=== PATIENT | female | born 1995 | race Caucasian/White ===

== ENCOUNTER 2016-11-18 08:10 | Emergency (ER) | payer BC ==
[~2016-11-18] VITALS: Ht 167.6 cm; Wt 61.0 kg
[2016-11-18 08:21] VITALS: TEMP 36.5; Ht 167.6 cm; Wt 61.0 kg
[2016-11-18] MEDS ORDERED: BCPILLS PO (08:34)
--- NOTE | 2016-11-18 08:57 | EMERGENCY ROOM VISIT NOTE ---
History Report prepared by Katherin: Viv Mckeon Under the Supervision of: Dr. Simon Stone M.D. First contact with patient: 08:37 Chief Complaint: ILLNESS Stated Complaint: SEIZURE History of Present Illness The patient is a 20 year old female who presents to the Emergency Room with complaints of an episode of a seizure this morning. The patient states that she was drinking all day yesterday and went to bed. She states she was sleeping and does not remember waking up this morning. Per her friend, he states that he woke up this morning and she was making noises. He states when he checked on her , she seemed purple in color, He states he thought she was choking, but her jaw was clenched shut. He states that she was shaking, frothing at the mouth, and her eyes were rolling into the back of her head. He states that she was not responsive to voices when she stopped moving till the paramedics arrived. He states that even once she was responding, she thought she was in [place] where she lives and seemed very confused. She denies peeing herself or biting her tongue. The patient states that she had a seizure as a child in fifth grade and believed that it was due to low blood sugar, but was negative from any abnormalities in sugar levels. She states she was not put on any medications for the seizure. She states she is on control and has been sleeping normally. The patient complains of feeling a little shaky. She denies a history of diabetes and heart disease. She denies fever, chills, headache, abdominal pain and nausea. The patient notes that her Tetanus is up to date. Source of History: patient, friend Onset: this morning Position: other (global) Quality: other (global) Timing: other (episode) Associated Symptoms: No abdominal pain, No chills, No fevers, No headache, No nausea Note: The patient denies urinating herself and biting her tongue. She complains of feeling shaky. Review of Systems All systems have been listed, reviewed, and are negative other than those previously mentioned. Please see Additional Medical History Sheet. Past Medical & Surgical Medical Problems: (1) History of seizure Family History No pertinent family history. Social History Smoking Status: Never Smoker Alcohol Use: occasionally Marital Status: in relationship Housing Status: lives with family Occupation Status: student Current/Historical Medications Scheduled Control Pills ( Control Pills), 1 TAB PO DAILY Allergies Coded Allergies: Alcohol (Unverified Allergy, Unknown, HIVES, 11/18/16) FROM PEACH VODKA Cefixime (Unverified Allergy, Unknown, UNKNOWN, 11/18/16) Sodium Benzoate (Unverified Allergy, Unknown, UNKNOWN, 11/18/16) Physical Exam Vital Signs Date Time Temp Pulse Resp B/P Pulse Ox O2 Delivery O2 Flow Rate FiO2 11/18/16 11:18 88 16 116/98 97 11/18/16 10:21 84 16 141/106 99 Room Air 11/18/16 09:33 88 16 132/107 98 Room Air 11/18/16 09:23 99 Room Air 11/18/16 08:21 36.5 99 16 152/93 99 Room Air 11/18/16 08:19 111 Physical Exam GENERAL: Patient awake, alert, oriented x 3. Patient follows commands. Patient does not appear toxic. Patient is adequately hydrated and well- nourished. SKIN: No erythema, pallor, cyanosis or rash HEENT: Normal head, pupils equal, reactive to light and accommodation. Oral cavity and posterior pharynx appear normal. Tongue shows no signs of abrasion or laceration. Neck: Without adenopathy, no neck vein distention. LUNGS: Clear to auscultation. No wheezes, no rales, no rhonchi. HEART: No murmurs. No gallops. No rubs ABDOMEN: No masses, no rebound, no hepatomegaly or splenomegaly. EXTREMITIES: No signs of trauma. No pedal or pretibial edema. No calf or thigh tenderness. Small 2 cm scratch on right knee. NEUROLOGIC: Cranial nerves II-XII within normal limits. No gross motor sensory function deficits. Medical Decision & Procedures Laboratory Results 11/18/16 08:55 Red Blood Count 5.18, Mean Corpuscular Volume 85.7, Mean Corpuscular Hemoglobin 30.5, Mean Corpuscular Hemoglobin Concent 35.6, Mean Platelet Volume 9.9, Neutrophils (%) (Auto) 75.7, Lymphocytes (%) (Auto) 17.5, Monocytes (%) (Auto) 5.4, Eosinophils (%) (Auto) 0.8, Basophils (%) (Auto) 0.5, Neutrophils # (Auto) 6.59, Lymphocytes # (Auto) 1.52, Monocytes # (Auto) 0.47, Eosinophils # (Auto) 0.07, Basophils # (Auto) 0.04 11/18/16 08:55 Test 11/18/16 08:39 11/18/16 08:55 11/18/16 09:30 Bedside Glucose 91 mg/dl (70-90) White Blood Count 8.70 K/uL (4.8-10.8) Red Blood Count 5.18 M/uL (4.2-5.4) Hemoglobin 15.8 g/dL (12.0-16.0) Hematocrit 44.4 % (37-47) Mean Corpuscular Volume 85.7 fL (80-100) Mean Corpuscular Hemoglobin 30.5 pg (25-34) Mean Corpuscular Hemoglobin Concent 35.6 g/dl (32-36) Platelet Count 218 K/uL (130-400) Mean Platelet Volume 9.9 fL (7.4-10.4) Neutrophils (%) (Auto) 75.7 % Lymphocytes (%) (Auto) 17.5 % Monocytes (%) (Auto) 5.4 % Eosinophils (%) (Auto) 0.8 % Basophils (%) (Auto) 0.5 % Neutrophils # (Auto) 6.59 K/uL (1.4-6.5) Lymphocytes # (Auto) 1.52 K/uL (1.2-3.4) Monocytes # (Auto) 0.47 K/uL (0.11-0.59) Eosinophils # (Auto) 0.07 K/uL (0-0.5) Basophils # (Auto) 0.04 K/uL (0-0.2) RDW Standard Deviation 38.3 fL (36.4-46.3) RDW Coefficient of Variation 12.1 % (11.5-14.5) Immature Granulocyte % (Auto) 0.1 % Immature Granulocyte # (Auto) 0.01 K/uL (0.00-0.02) Anion Gap 12.0 mmol/L (3-11) Est Creatinine Clear Calc Drug Dose 87.6 ml/min Estimated GFR () 99.2 Estimated GFR (Non- 85.6 BUN/Creatinine Ratio 14.7 (10-20) Calcium Level 9.6 mg/dl (8.5-10.1) Total Bilirubin 0.9 mg/dl (0.2-1) Aspartate Amino Transf (AST/SGOT) 23 U/L (15-37) Alanine Aminotransferase (ALT/SGPT) 25 U/L (12-78) Alkaline Phosphatase 66 U/L (45-117) Total Protein 8.2 gm/dl (6.4-8.2) Albumin 4.3 gm/dl (3.4-5.0) Globulin 3.9 gm/dl (2.5-4.0) Albumin/Globulin Ratio 1.1 (0.9-2) Urine Color YELLOW Urine Appearance CLEAR (CLEAR) Urine pH 6.0 (4.5-7.5) Urine Specific [place] 1.026 (1.000-1.030) Urine Protein NEG (NEG) Urine Glucose (UA) NEG (NEG) Urine Ketones NEG (NEG) Urine Occult Blood NEG (NEG) Urine Nitrite NEG (NEG) Urine Bilirubin NEG (NEG) Urine Urobilinogen NEG (NEG) Urine Leukocyte Esterase NEG (NEG) Urine Test NEG (NEG) Laboratory results as stated above per my review. ED Course 0840: Past medical records reviewed. The patient was evaluated in room B7. A complete history and physical examination was performed. 1058: I reevaluated the patient and she is resting comfortably. She has had no seizure activity while here. 1120: Upon reevaluation, the patient appeared to have improvement of her symptoms. I discussed today's findings with the patient. She verbalized agreement of the treatment plan. The patient was discharged home. 1131: I discussed the physical exam findings with the patient's family, as well as the treatment plan. They verbalized agreement and understanding. I explained what seizures are to them and all background knowledge on them. Medical Decision Differntial diagnoses include grand mal seizure, arrhythmia, metabolic disorder History from the patient and boyfriend are most consistent with a isolated grand mal seizure. The patient had been drinking alcohol last night prior to the seizure. She has not been ill recently. Workup here included multiple labs and EKG. Please see above. The patient has no outstanding abnormalities. The patient will most likely require an MRI and EEG as an outpatient. In the meantime the patient was instructed not to drive. Department of Transportation form was completed. The patient is to follow-up with her family physician as soon as possible. I've elected to not start the patient on any antiseizure medications at this time. Blood pressure was elevated but I believe it may be related to being here in the ED after a seizure. Impression Primary Impression: Seizure Additional Impression: Elevated blood pressure reading Scribe Attestation The scribe's documentation has been prepared under my direction and personally reviewed by me in its entirety. I confirm that the note above accurately reflects all work, treatment, procedures, and medical decision making performed by me. Departure Information Dispostion Home / Self-Care Referrals No Doctor, Assigned (PCP) Forms HOME CARE DOCUMENTATION FORM, IMPORTANT VISIT INFORMATION, WORK / SCHOOL INSTRUCTIONS Patient Instructions ED Seizure New Onset Unk Cause, My [facility] Additional Instructions Follow-up with your family physician as soon as possible. You may need to have an outpatient MRI and EEG. Do not drive until cleared by your family physician or neurologist. You may continue your normal diet. Avoid alcohol. Problem Qualifiers
[2016-11-18 09:15] LABS: HEMATOCRIT 44.4 % (37-47); MEAN CELL VOLUME 85.7 fL (80-100); MEAN CORPUSCULAR HEMOGLOBIN 30.5 pg (25-34); MEAN CORPUSCULAR HGB CONC 35.6 g/dl (32-36); MEAN PLATELET VOLUME 9.9 fL (7.4-10.4); PLATELET COUNT 218 K/uL (130-400); RED BLOOD COUNT 5.18 M/uL (4.2-5.4)
[2016-11-18 09:23] VITALS: O2SAT 99
[2016-11-18 09:32] LABS: CALCIUM 9.6 mg/dl (8.5-10.1)
[2016-11-18 09:33] LABS: BASO % 0.5 %; BASO ABS # 0.04 K/uL (0-0.2); BUN/CREATININE RATIO 14.7 (10-20); COMPLETE YES; CREATININE 0.95 mg/dl (0.60-1.20); EOS % 0.8 %; IG% 0.1 %; LYMPH % 17.5 %; LYMPH ABS # 1.52 K/uL (1.2-3.4); MONO % 5.4 %; NEUT % 75.7 %; POTASSIUM 3.5 mmol/L (3.5-5.1)
[2016-11-18 09:36] LABS: ALB/GLOB RATIO 1.1 (0.9-2)
[2016-11-18 10:09] LABS: URINE APPEARANCE CLEAR (CLEAR); URINE BILIRUBIN NEG (NEG); URINE COLOR YELLOW; URINE NITRITE NEG (NEG); URINE SPECIFIC GRAVITY 1.026 (1.000-1.030); UROBILINOGEN NEG (NEG); ZZUR CULT IF INDIC CLEAN CATCH NO
[2016-11-18 10:15] LABS: MANUAL MICROSCOPIC REQUIRED? NO; REVIEW REQ? NO
[2016-11-18 11:18] VITALS: BP 116/98; PULSE 88; O2SAT 97
== END 2016-11-18 11:21 | disposition home or self-care (01) ==
LOC: C.EDB 08:13 → EDBD 08:13 → C.EDB 11:21
DX: G40.909 Epilepsy, unspecified, not intractable, without status epilepticus (principal); R03.0 Elevated blood-pressure reading, without diagnosis of hypertension; Z79.3 Long term (current) use of hormonal contraceptives